=== PATIENT | male | born 1945 | race Caucasian/White ===

== ENCOUNTER 2021-05-13 21:20 | Emergency (ER) | payer OTHER ==
[2021-05-13 21:31] VITALS: PULSE 59; BMI 24.7
[2021-05-13 22:08] LABS: BASO % 1.8 % (0-2.0); EOS % 4.4 % (0-4.5); HEMATOCRIT 37.4 % (35.4-49); HEMOGLOBIN 12.5 GM/dl (11.7-16.9); LYMPH % 26.7 % (8-40); MCH 31.8 pg (25.7-33.7); MCHC 33.4 g/dl (32.0-35.9); MEAN CELL VOLUME 95.3 fl (80-96); MEAN PLT VOLUME 7.7 fl (7.5-11.1); MONO % 8.9 % (3.8-10.2); NEUT % 58.2 % (42.8-82.8); PLATELET COUNT 241 10^3/uL (134-434); RBC 3.93 M/mm3 (4.00-5.60); RDW 13.6 % (11.9-15.9); WHITE BLOOD COUNT 8.4 K/mm3 (4.0-10.8)
[2021-05-13 22:19] LABS: ALBUMIN 4.2 g/dl (3.4-5.0); ALK PHOS 58 U/L (45-117); ANION GAP 10 MMOL/L (8-16); BILIRUBIN,TOTAL 0.7 mg/dl (0.2-1); CALCIUM 8.7 mg/dl (8.5-10); CHLORIDE 105 mmol/L (98-107); CO2 20 mmol/L (21-32); GLUCOSE,RANDOM 91 mg/dl (74-106); SGOT/AST 39 U/L (15-37); SGPT/ALT 24 U/L (13-61); SODIUM 135 mmol/L (136-145); TOT PROT 6.8 g/dl (6.4-8.2)
[2021-05-13] MEDS ORDERED: SODIUM CHLORIDE 1,000 ML IV ONE (23:01)
[2021-05-13 23:53] VITALS: BP 141/80; TEMP 97.7
== END 2021-05-14 00:03 | disposition home or self-care (01) ==
LOC: FER 21:20
PROC: 3E0337Z Introduction of Electrolytic and Water Balance Substance into Peripheral Vein, Percutaneous Approach (ICD-10-PCS; principal; 2021-05-13)
DX: R68.83 Chills (without fever) (principal)
CPT/HCPCS: 36415; 80053; 81003; 81015; 82550; 82553; 84484; 85025; 87086; 93005; 99283-25

== ENCOUNTER 2021-11-26 18:45 | Emergency (ER) | payer OTHER ==
[2021-11-26 18:56] VITALS: BP 129/64; PULSE 60; TEMP 98.2; BMI 24.8
== END 2021-11-26 19:35 | disposition home or self-care (01) ==
LOC: FER 18:45
DX: S76.311A Strain of muscle, fascia and tendon of the posterior muscle group at thigh level, right thigh, initial encounter (principal)
CPT/HCPCS: 99283-25